=== PATIENT | female | born 1995 | race Caucasian/White ===

== ENCOUNTER 2022-08-11 22:22 | Emergency (ER) | payer OTHER ==
[~2022-08-11] VITALS: Ht 165.1 cm; Wt 86.2 kg
[2022-08-11 22:51] VITALS: BP 120/90
[2022-08-11] MEDS ORDERED: AMOX-430 PO (22:56)
== END 2022-08-11 22:58 | disposition home or self-care (01) ==
LOC: ER 22:31
DX: S50.812A Abrasion of left forearm, initial encounter (principal); Z79.899 Other long term (current) drug therapy; W55.01XA Bitten by cat, initial encounter; Y93.89 Activity, other specified; Y92.89 Other specified places as the place of occurrence of the external cause; Y99.8 Other external cause status